=== PATIENT | male | born 1955 | race Caucasian/White ===

== ENCOUNTER 2019-11-16 06:56 | Day surgery (SDC) | payer BC ==
[2019-11-16] MEDS ORDERED: Propofol 200 MG/20 ML SDV ONE (07:15)
[2019-11-16] MEDS ORDERED: fentaNYL 100 MCG/2 ML SDV ONE (07:16)
[2019-11-16] MEDS ORDERED: Midazolam 1 MG/ML 2 ML SDV ONE (07:16)
[2019-11-16] MEDS ORDERED: Sodium Chloride 0.9% 1,000 ML IV SCH (07:30)
--- NOTE | 2019-11-16 11:35 | OR ---
DATE OF PROCEDURE: 11/16/2019 SURGEON: Raymon Rodriguez MD PROCEDURE: Colonoscopy. FINDINGS: Normal colonoscopy. COMPLICATIONS: None. QUALITY LAB TECHNICIAN: None. ANESTHESIA: MAC. RISKS: Risks, benefits, alternatives, and limitations including, but not limited to, infection, bleeding, and perforation were explained to the patient, who wished to proceed. PREOPERATIVE DIAGNOSIS: Screening colonoscopy. POSTOPERATIVE DIAGNOSIS: Screening colonoscopy. PROCEDURE IN DETAIL: The patient was placed in the left lateral decubitus position. Digital rectal exam performed without abnormality. Scope was introduced and advanced atraumatically to ileocecal valve. A photo was taken. The scope was brought back through the ascending, transverse, descending colon, and retroflexed. No evidence of old or new blood. No masses. No polyps. No diverticulitis or diverticulosis. No colitis. No abnormalities on retroflexion. The patient tolerated the procedure well. Raymon Rodriguez MD /[id number]
== END 2019-11-16 09:30 | disposition home or self-care (01) ==
LOC: JP.SDS 06:56
PROVIDERS: ATTEND Surgery
DX: Z12.11 Encounter for screening for malignant neoplasm of colon (principal); Z88.0 Allergy status to penicillin
CPT/HCPCS: 45378; J2250; J2704; J3010; J7030